=== PATIENT | male | born 1995 | race Caucasian/White ===

== ENCOUNTER 2024-12-25 14:29 | Emergency (ER) | payer SELFPAY ==
[~2024-12-25] VITALS: Ht 170.2 cm; Wt 65.0 kg
[2024-12-25 14:40] VITALS: O2SAT 99
[2024-12-25 15:18] LABS: BASOPHILS % 0.6 % (0.0-2.0); EOSINOPHILS % 0.3 % (0.0-5.0); HEMATOCRIT. 45.0 % (42.0-52.0); HEMOGLOBIN. 15.6 g/dL (14.0-18.0); LYMPHOCYTES % 11.9 % (20.0-50.0); MEAN PLATELET VOLUME 6.7 fl (7.4-10.4); MONOCYTES % 5.5 % (2.0-8.0); NEUTROPHILS % 81.7 % (40.0-76.0); PLATELET 299 x1000/uL (130-400); RED BLOOD CELL COUNT 5.24 mill/uL (4.7-6.1); RED CELL DISTRIBUTION WIDTH 13.5 % (11.6-14.6)
[2024-12-25 15:31] LABS: CREATININE 1.0 mg/dL (0.6-1.3); UREA NITROGEN BLOOD 6 mg/dL (9-23)
[2024-12-25 15:32] LABS: TROPONIN I HIGH SENSITIVITY 6 ng/L (3.0-53)
[2024-12-25 17:41] VITALS: BP 128/88; PULSE 98; RESP 20; TEMP 36.7; O2SAT 99
== END 2024-12-25 17:46 | disposition home or self-care (01) ==
LOC: ER 14:29
DX: R07.89 Other chest pain (principal)
CPT/HCPCS: 36415; 71045; 80048; 84484; 85025; 93005; 99285